=== PATIENT | female | born 1940 | race Hispanic/Latino ===

== ENCOUNTER → 2018-11-18 | Outpatient (CLI) | payer MEDICARE | END | disposition home or self-care (01) | LOC: OIH 11:10 | PROVIDERS: ATTEND Internal Medicine | DX: S60.00XA Contusion of unspecified finger without damage to nail, initial encounter (principal); M19.042 Primary osteoarthritis, left hand; M85.842 Other specified disorders of bone density and structure, left hand; M25.442 Effusion, left hand; X58.XXXA Exposure to other specified factors, initial encounter; Y93.89 Activity, other specified; Y92.89 Other specified places as the place of occurrence of the external cause; Y99.8 Other external cause status | CPT/HCPCS: 73140 ==

== ENCOUNTER → 2020-10-02 | Outpatient (CLI) | payer MEDICARE | END | disposition home or self-care (01) | LOC: RAH 08:41 | PROVIDERS: ATTEND Family Medicine | DX: M51.16 Intervertebral disc disorders with radiculopathy, lumbar region (principal); M48.061 Spinal stenosis, lumbar region without neurogenic claudication | CPT/HCPCS: 72148 ==

== ENCOUNTER → 2020-10-09 | Outpatient (CLI) | payer MEDICARE | END | disposition home or self-care (01) | LOC: RAH 11:01 | PROVIDERS: ATTEND Family Medicine | DX: M25.452 Effusion, left hip (principal) | CPT/HCPCS: 73721 ==

== ENCOUNTER 2021-12-08 06:53 | Day surgery (SDC) | payer OTHER ==
[2021-12-05 09:47] LABS: BASOPHILS % (AUTO) 0.1 % (0.0-5.0); EOSINOPHILS % (AUTO) 1.2 % (0.0-8.0); HEMATOCRIT 40.1 % (36-48); LYMPHOCYTES % (AUTO) 25.6 % (21.0-51.0); MEAN CORPUSCULAR HGB CONC 34.7 g/dL (32.0-36.0); MEAN CORPUSCULAR VOLUME 92.2 fL (79-99); MONOCYTES % (AUTO) 7.8 % (3.0-13.0); PLATELET COUNT (AUTO) 206 K/uL (130-400); RED BLOOD CELL COUNT(AUTO) 4.35 MIL/uL (4.00-5.50); RED CELL DISTRIBUTION WIDTH 12.6 % (11.0-15.5); WHITE BLOOD COUNT (AUTO) 6.8 K/uL (4.8-10.8)
[2021-12-05 09:54] LABS: POTASSIUM 3.2 mmol/L (3.5-5.1)
[2021-12-05 10:01] VITALS: BP 142/75
[2021-12-08] VITALS (13 sets, daily range): BP systolic 94–166; BP diastolic 40–87
[~2021-12-08] VITALS: Ht 157.5 cm; Wt 68.5 kg
[2021-12-08] MEDS: CEFAZOLIN SODIUM 1 GM VIAL IVP SCH ×2 (06:00→08:49)
[~2021-12-08 06:53] MED LIST: DRAMAMINE PO; ESCI10TA PO; HYDR12.54 PO; NORVASC PO; PRILOSEC PO; [UNRECOGNIZED DRUG - OTHER] PO
[2021-12-08] MEDS ORDERED: LACTATED RINGERS 1000ML 1,000 ML IV ONE (06:59)
[2021-12-08] MEDS ORDERED: BUPIVACAINE/PF 0.5% 10ML VIAL ONE (07:16)
[2021-12-08] MEDS ORDERED: IOPAMIDOL 10 ML VIAL ONE (07:58)
[2021-12-08] MEDS ORDERED: FAMOTIDINE 20MG VIAL IV ONE (08:36)
[2021-12-08] MEDS ORDERED: PROPOFOL 10 MG/ML 20ML VIAL IV ONE (08:42)
== END 2021-12-08 10:15 | disposition home or self-care (01) ==
LOC: DAH 06:53
PROVIDERS: ATTEND Orthopaedic Surgery
DX: M16.12 Unilateral primary osteoarthritis, left hip (principal); M70.62 Trochanteric bursitis, left hip; G89.29 Other chronic pain; I10 Essential (primary) hypertension; F32.A Depression, unspecified; F41.9 Anxiety disorder, unspecified; K21.9 Gastro-esophageal reflux disease without esophagitis; Z98.890 Other specified postprocedural states; Z98.891 History of uterine scar from previous surgery; Z90.710 Acquired absence of both cervix and uterus; Z90.49 Acquired absence of other specified parts of digestive tract; Z79.899 Other long term (current) drug therapy; Z90.722 Acquired absence of ovaries, bilateral
CPT/HCPCS: 87426; 80048; 85025; 36415 ×2; 20610; 84132; 73503; 93005; J7120; J3490 ×2; J0690; J2704; J1030; Q9966; A4930; A5120; A4215; A4223; A4222; A4221; A4663

== ENCOUNTER → 2022-01-21 | Outpatient (CLI) | payer OTHER | END | disposition home or self-care (01) | LOC: RAH 10:19 | PROVIDERS: ATTEND Internal Medicine | DX: M51.27 Other intervertebral disc displacement, lumbosacral region (principal); G95.9 Disease of spinal cord, unspecified; M48.061 Spinal stenosis, lumbar region without neurogenic claudication; M54.42 Lumbago with sciatica, left side; M47.816 Spondylosis without myelopathy or radiculopathy, lumbar region | CPT/HCPCS: 72148 ==

== ENCOUNTER 2022-02-23 10:00 | Observation (INO) | payer OTHER ==
[~2022-02-23] VITALS: Ht 157.5 cm; Wt 69.2 kg
[~2022-02-23 10:00] MED LIST changes: -HYDR12.54 PO
[2022-02-23 11:29] LABS: BASOPHILS % (AUTO) 0.1 % (0.0-5.0); EOSINOPHILS % (AUTO) 0.2 % (0.0-8.0); HEMATOCRIT 44.3 % (36-48); LYMPHOCYTES % (AUTO) 23.6 % (21.0-51.0); MEAN CORPUSCULAR HEMOGLOBIN 32.5 pg (27.0-33.0); MEAN CORPUSCULAR HGB CONC 33.9 g/dL (32.0-36.0); MEAN CORPUSCULAR VOLUME 95.9 fL (79-99); MONOCYTES % (AUTO) 6.4 % (3.0-13.0); NEUTROPHILS % (AUTO) 69.4 % (40.0-77.0); PLATELET COUNT (AUTO) 260 K/uL (130-400); RED BLOOD CELL COUNT(AUTO) 4.62 MIL/uL (4.00-5.50); RED CELL DISTRIBUTION WIDTH 12.6 % (11.0-15.5); WHITE BLOOD COUNT (AUTO) 9.2 K/uL (4.8-10.8)
[2022-02-23 11:39] LABS: POTASSIUM 3.8 mmol/L (3.5-5.1)
[2022-02-24] MEDS: CEFAZOLIN SODIUM 1 GM VIAL IVP SCH (11:00)
[2022-02-24 11:57] VITALS: BP 130/71
[2022-02-24] MEDS ORDERED: ROSU5TAB12 PO (12:05)
[2022-02-24] MEDS ORDERED: CALC1TAB2 PO (12:05)
[2022-02-24] MEDS ORDERED: VITAMIN D3 SL (12:05)
[2022-02-25] VITALS (23 sets, daily range): BP systolic 130–163; BP diastolic 58–94
[2022-02-25] MEDS ORDERED: CEFAZOLIN SODIUM 1 GM VIAL ONE (09:58)
[2022-02-25] MEDS ORDERED: BUPIVACAINE/EPI/PF 0.25% 10ML VIAL IJ ONE (09:59)
[2022-02-25] MEDS ORDERED: MORPHINE PF 100MG/10ML AMP IV ONE (09:59)
[2022-02-25] MEDS ORDERED: BUPIVACAINE/EPI/PF 0.5% 30ML VIAL IJ ONE (09:59)
[2022-02-25] MEDS ORDERED: LACTATED RINGERS 1000ML 1,000 ML IV ONE (10:19)
[2022-02-25] MEDS ORDERED: FENTANYL CITRATE PF 50 MCG/1 ML 2ML VIAL ONE ×2 (11:17→15:27)
[2022-02-25] MEDS ORDERED: MIDAZOLAM HCL 1 MG/ML 2ML VIAL ONE (11:17)
[2022-02-25] MEDS ORDERED: ONDANSETRON 4MG INJ ONE (11:19)
[2022-02-25] MEDS ORDERED: DEXAMETHASONE SOD PHOSPHATE 10MG/ML 1ML VIAL ONE (11:19)
[2022-02-25] MEDS ORDERED: FAMOTIDINE 20MG VIAL IV ONE (11:40)
[2022-02-25] MEDS ORDERED: SCOPOLAMINE HYDROBROMIDE 1 EACH ADH..PATCH TD ONE (13:17)
[2022-02-25] MEDS ORDERED: THROMBIN-JMI 20000 UNIT KIT TP ONE (14:00)
[2022-02-25] MEDS: CEFAZOLIN SODIUM 1 GM VIAL IVP SCH (14:00)
[2022-02-25] MEDS ORDERED: ARTIFICIAL TEARS 3.5 GM OINTMENT ONE (15:46)
[2022-02-25] MEDS ORDERED: PROMETHAZINE HCL 25 MG/ML 1ML AMPULE IM PRN (16:30)
[2022-02-25] MEDS ORDERED: DRAMAMINE PO PRN (16:30)
[2022-02-25] MEDS ORDERED: HYDROCODONE/ACETAMINOPHEN 5/325 MG TAB PO PRN (16:30)
[2022-02-25] MEDS ORDERED: 0.9%NACL 10ML VIAL IVP PRN (16:30)
[2022-02-25] MEDS ORDERED: MORPHINE 2 MG SYG IVP PRN (16:30)
[2022-02-25] MEDS: LACTATED RINGERS 1000ML 1,000 ML IV SCH (18:00)
[2022-02-25] MEDS ORDERED: PHARMACY COMMUNICATION MISC SCH (18:00)
[2022-02-25] MEDS: DEXAMETHASONE SOD PHOSPHATE 4 MG/ML 1ML VIAL IVP SCH (18:01)
[2022-02-25] MEDS ORDERED: NON-FORMULARY MEDICATION 1 EACH (Escitalopram Oxalate (Lexapro) 10 MG) PO SCH (21:00)
[2022-02-25] MEDS: BETAHISTINE 16 MG PO SCH (21:00)
[2022-02-25] MEDS ORDERED: ESCITALOPRAM 10MG PO SCH (21:00)
[2022-02-25] MEDS ORDERED: BETAHISTINE 16 MG PO SCH (21:00)
[2022-02-25] MEDS ORDERED: CEFAZOLIN SODIUM 2 GM VIAL IVP ONE (22:00)
[2022-02-26] MEDS: DEXAMETHASONE SOD PHOSPHATE 4 MG/ML 1ML VIAL IVP SCH ×2 (00:12→06:40)
[2022-02-26 03:43] VITALS: BP 127/55
[2022-02-26] MEDS: LACTATED RINGERS 1000ML 1,000 ML IV SCH (05:50)
[2022-02-26 08:00] VITALS: BP 125/57
[2022-02-26] MEDS: BETAHISTINE 16 MG PO SCH (08:23)
[2022-02-26] MEDS ORDERED: CA 600MG+VIT D 400 UNIT TAB 1 TAB TABLET PO SCH (09:00)
[2022-02-26] MEDS ORDERED: PRILOSEC 20 MG PO SCH (09:00)
[2022-02-26] MEDS ORDERED: PANTOPRAZOLE 40 MG TAB DR PO SCH (09:00)
[2022-02-26] MEDS ORDERED: ESCITALOPRAM 10MG PO SCH (09:00)
[2022-02-26] MEDS ORDERED: VITAMIN D3 5000 UNIT SL SCH (09:00)
[2022-02-26] MEDS ORDERED: NORVASC 5 MG PO SCH (12:00)
[2022-02-26] MEDS ORDERED: AMLODIPINE 5 MG TAB PO SCH (12:00)
== END 2022-02-26 11:00 | disposition home or self-care (01) ==
LOC: EDSTATUS 10:00 → DAHIP 02-25 09:39 → 4BH 02-25 17:30
PROVIDERS: ADMIT Neurological Surgery; ATTEND Neurological Surgery
DX: M48.061 Spinal stenosis, lumbar region without neurogenic claudication (principal); Z20.822 Contact with and (suspected) exposure to COVID-19; H81.09 Meniere's disease, unspecified ear; K21.9 Gastro-esophageal reflux disease without esophagitis; M48.07 Spinal stenosis, lumbosacral region; Z90.710 Acquired absence of both cervix and uterus
CPT/HCPCS: 80051; 85025; 87426; 36415; 71045; 63047; 63048 ×2; 96374; 96375; 72020; 96376; A6260; J1100 ×5; G0378 ×18; G0379; A4663; J7120 ×4; A4344; J3490 ×3; J3010 ×2; J0690 ×3; J2250; J2274; J2405; A4649 ×2; A4215; A4223; A4222; A4221; A4600

== ENCOUNTER → 2023-05-10 | Outpatient (CLI) | payer OTHER ==
[~2023-05-10] MED LIST changes: +CALC1TAB2 PO; +ROSU5TAB12 PO; +VITAMIN D3 SL
== END | disposition home or self-care (01) ==
LOC: OIH 10:53
PROVIDERS: ATTEND Internal Medicine
DX: Z13.6 Encounter for screening for cardiovascular disorders (principal)
CPT/HCPCS: 75571

== ENCOUNTER → 2023-06-09 | Outpatient (CLI) | payer MEDICARE | END | disposition home or self-care (01) | LOC: OIH 09:22 | PROVIDERS: ATTEND Internal Medicine | DX: R06.02 Shortness of breath (principal); L92.8 Other granulomatous disorders of the skin and subcutaneous tissue; M47.815 Spondylosis without myelopathy or radiculopathy, thoracolumbar region; Z98.890 Other specified postprocedural states | CPT/HCPCS: 71046 ==

== ENCOUNTER 2023-10-06 08:07 | Emergency (ER) | payer OTHER ==
[~2023-10-06] VITALS: Ht 157.5 cm; Wt 67.6 kg
[~2023-10-06 08:07] MED LIST changes: -ROSU5TAB12 PO; +ROSU5TAB43 PO
[2023-10-06] MEDS ORDERED: NIFEDIPINE 10 MG CAP PO STA (09:46)
[2023-10-06 10:13] LABS: BASOPHILS # (AUTO) 0.03 K/uL (0.00-0.20); BASOPHILS % (AUTO) 0.3 % (0.0-5.0); EOSINOPHILS # (AUTO) 0.03 K/uL (0.00-0.70); EOSINOPHILS % (AUTO) 0.3 % (0.0-8.0); HEMATOCRIT 42.6 % (36-48); IMMATURE GRANULOCYTE ABSOLUTE 0.02 K/uL (0-1); LYMPHOCYTES # (AUTO) 1.9 K/uL (1.0-4.8); LYMPHOCYTES % (AUTO) 18.9 % (21.0-51.0); MEAN CORPUSCULAR HEMOGLOBIN 31.9 pg (27.0-33.0); MEAN CORPUSCULAR HGB CONC 34.3 g/dL (32.0-36.0); MONOCYTES # (AUTO) 0.5 K/uL (0.1-1.0); MONOCYTES % (AUTO) 4.7 % (3.0-13.0); NEUTROPHILS # (AUTO) 7.6 K/uL (1.8-7.7); NEUTROPHILS % (AUTO) 75.6 % (40.0-77.0); PLATELET COUNT (AUTO) 198 K/uL (130-400); RED BLOOD CELL COUNT(AUTO) 4.58 MIL/uL (4.00-5.50); RED CELL DISTRIBUTION WIDTH 12.6 % (11.0-15.5)
[2023-10-06 10:20] LABS: CREATININE 0.9 mg/dL (0.5-1.0); POTASSIUM 4.2 mmol/L (3.5-5.1)
[2023-10-06] MEDS ORDERED: AMOX1TAB16 PO (11:26)
[2023-10-06] MEDS ORDERED: ACET-66 PO (11:26)
[2023-10-06 12:07] VITALS: BP 148/77; PULSE 88; RESP 18; O2SAT 97
== END 2023-10-06 12:19 | disposition home or self-care (01) ==
LOC: EDH 08:07
DX: S02.32XA Fracture of orbital floor, left side, initial encounter for closed fracture (principal); S63.502A Unspecified sprain of left wrist, initial encounter; E78.00 Pure hypercholesterolemia, unspecified; I10 Essential (primary) hypertension; Z88.1 Allergy status to other antibiotic agents; W01.0XXA Fall on same level from slipping, tripping and stumbling without subsequent striking against object, initial encounter; Y93.01 Activity, walking, marching and hiking; Y92.89 Other specified places as the place of occurrence of the external cause; Y99.8 Other external cause status
CPT/HCPCS: 36415; 70450; 70486; 73110; 73562; 80048; 85025

== ENCOUNTER → 2023-11-30 | Outpatient (CLI) | payer OTHER ==
[~2023-11-30] MED LIST changes: +ACET-66 PO; +AMOX1TAB16 PO
== END | disposition home or self-care (01) ==
LOC: RAH 11:37
PROVIDERS: ATTEND Internal Medicine
DX: S83.281A Other tear of lateral meniscus, current injury, right knee, initial encounter (principal); M17.11 Unilateral primary osteoarthritis, right knee; M23.90 Unspecified internal derangement of unspecified knee; X58.XXXA Exposure to other specified factors, initial encounter; Y93.89 Activity, other specified; Y92.89 Other specified places as the place of occurrence of the external cause; Y99.8 Other external cause status
CPT/HCPCS: 73560

== ENCOUNTER → 2023-12-01 | Outpatient (CLI) | payer OTHER | END | disposition home or self-care (01) | LOC: RAH 13:18 | PROVIDERS: ATTEND Internal Medicine | DX: S83.241A Other tear of medial meniscus, current injury, right knee, initial encounter (principal); S83.281A Other tear of lateral meniscus, current injury, right knee, initial encounter; M25.461 Effusion, right knee; M23.90 Unspecified internal derangement of unspecified knee; X58.XXXA Exposure to other specified factors, initial encounter; Y93.89 Activity, other specified; Y92.89 Other specified places as the place of occurrence of the external cause; Y99.8 Other external cause status | CPT/HCPCS: 73721 ==

== ENCOUNTER → 2024-10-30 | Outpatient (CLI) | payer OTHER ==
[~2024-10-30] MED LIST changes: +ACET-2079 PO; -ACET-66 PO; -AMOX1TAB16 PO; +ASPI-1443 PO; +BETA1TAB20 PO; -CALC1TAB2 PO; -DRAMAMINE PO; +MVI PO; -ROSU5TAB43 PO; +ROSUVASTATIN PO; -VITAMIN D3 SL; -[UNRECOGNIZED DRUG - OTHER] PO
--- NOTE | 2024-10-31 02:47 | HMCIMG ---
EXAM: CR Chest, 2 views CLINICAL HISTORY: Shortness of breath. COMPARISON: Chest radiograph dated 06/09/2023. FINDINGS: 0.6 cm calcified granuloma in the right upper zone. The lungs show no infiltrates or other acute findings. No pleural effusion or pneumothorax. The cardiomediastinal silhouette is within normal limits. No acute osseous abnormality. Mild osteopenia. Mild degenerative osseous changes. IMPRESSION: No acute cardiopulmonary process is evident. 0.6 cm calcified granuloma in the right upper zone. /[place]
== END | disposition home or self-care (01) ==
LOC: RAH 14:59
PROVIDERS: ATTEND Internal Medicine
DX: I10 Essential (primary) hypertension (principal)
CPT/HCPCS: 71046